=== PATIENT | female | born 1960 | race Caucasian/White ===

== ENCOUNTER 2021-10-12 10:27 | Outpatient (REF) | payer OTHER, SELFPAY ==
[2021-10-12 11:20] LABS: Cholesterol 242 mg/dL; HDL Cholesterol 58 mg/dL; LDL Cholesterol Calculated 165 mg/dl; Triglycerides 99 mg/dL
== END 2021-10-12 10:28 | disposition home or self-care (01) ==
LOC: HO.LNP 10:27
PROVIDERS: Visit Provider Internal Medicine
DX: I10 Essential (primary) hypertension (principal)
CPT/HCPCS: 80061